=== PATIENT | male | born 1985 | race Asian ===

== ENCOUNTER → 2022-07-15 | Emergency (ER) | payer OTHER ==
[~2022-07-15] VITALS: Ht 170.2 cm; Wt 75.3 kg
[~2022-07-15] MED LIST: DIAZEPAM 5 MG TABLET ONE; DIAZEPAM 5 MG TABLET PO ONE; IV NS 0.9% 1,000 ML BAG IV ONE; MECL-182 PO; MECLIZINE HCL 12.5 MG TABLET PO ONE; MECLIZINE HCL 25 MG TABLET ONE
--- NOTE | 2022-07-15 09:40 | NUR ---
RECEVED PT 37 YRS MALE CAME FROM HOME WALKING IN C/O DIZZNESS X1 DAYS AWAKE AND ALERT DINESS WEEKNESS
[2022-07-15 10:21] LABS: BASOPHILS % (AUTO) 0.2 % (0.0-2.0); EOSINOPHILS % (AUTO) 0.8 % (0.0-6.0); HEMATOCRIT 42 % (39-51); HEMOGLOBIN 13.7 g/dL (13.5-17.5); LYMPHOCYTES # (AUTO) 1.4 K/uL (0.8-4.8); LYMPHOCYTES % (AUTO) 11.5 % (20.0-44.0); MEAN CORPUSCULAR HGB CONC 33 g/dl (31.0-36.0); MEAN CORPUSCULAR VOLUME 75 fL (80-96); MONOCYTES # (AUTO) 0.5 K/uL (0.1-1.30); MONOCYTES % (AUTO) 4.3 % (2.0-12.0); NEUTROPHILS # (AUTO) 10.1 K/uL (1.8-8.9); NEUTROPHILS % (AUTO) 83.2 % (43.0-81.0); PLATELET COUNT (AUTO) 227 K/uL (150-450); RED BLOOD CELL COUNT(AUTO) 5.56 MIL/uL (4.5-6.0); WHITE BLOOD COUNT (AUTO) 12.2 K/uL (4.3-11.0)
[2022-07-15 10:40] LABS: BILIRUBIN,DIRECT 0.2 mg/dL (0.0-0.2); CALCIUM, SERUM 8.8 mg/dL (8.5-10.1); CREATININE 0.9 mg/dL (0.6-1.3); POTASSIUM 4.3 mmol/L (3.5-5.1); TOTAL PROTEIN, SERUM 7.5 g/dL (6.4-8.2)
--- NOTE | 2022-07-15 10:40 | NUR ---
RESTING AND ASLEEPY NO COMPLAIN
--- NOTE | 2022-07-15 11:59 | NUR ---
MARSHA SENT TO LAB
--- NOTE | 2022-07-15 12:34 | NUR ---
PT IMPROVING AND RESOLIVEING DIZZNESS
--- NOTE | 2022-07-15 13:00 | NUR ---
at bed side spook with pt
--- NOTE | 2022-07-15 13:10 | NUR ---
d/c rob pressure appled no swallen or bleeding on site
--- NOTE | 2022-07-15 13:14 | NUR ---
Patient discharged to home in stable condition. Written and verbal after care instructions given. Patient verbalizes understanding of instruction.
[2022-07-15 13:17] VITALS: BP 131/99
== END | disposition home or self-care (01) ==
LOC: ER 09:39 → EDBD 09:39
DX: R42 Dizziness and giddiness (principal); Z79.899 Other long term (current) drug therapy
CPT/HCPCS: 99285; 96360; 93005; 85025; 80048; 80076; 36415; 82962 ×2; J8597; J7030